=== PATIENT | male | born 1950 | race African-American/Black ===

== ENCOUNTER → 2017-01-18 | Outpatient (CLI) | payer OTHER ==
--- NOTE | 2017-01-18 14:40 | RAD ---
Indication at risk for abdominal aortic aneurysm. Grayscale and color imaging was performed. Examination was targeted to the abdominal aorta. There is no abdominal aortic aneurysm. Maximum dimension of the abdominal aorta is approximately 2 cm. IMPRESSION: No abdominal aortic aneurysm
== END | disposition home or self-care (01) ==
LOC: US 06:40
PROVIDERS: ATTEND Family Medicine
DX: Z13.6 Encounter for screening for cardiovascular disorders (principal)
CPT/HCPCS: 76770